=== PATIENT | male | born 2000 | race Caucasian/White ===

== ENCOUNTER 2019-02-10 22:04 | Inpatient (IN) | payer BC ==
[~2019-02-10] VITALS: Ht 188 cm; Wt 87.0 kg
[2019-02-10 22:36] LABS: BASO % 0.2 % (0.0-2.0); GRAN # 16.7 (1.4-6.5); GRAN % 88.1 % (42.2-75.2); LYMPH % 5.1 % (20.0-51.0); MEAN CELL VOLUME 90 fl (80.0-95.0); MEAN CORPUSCULAR HGB CONC 34 g/dl (33.0-37.0); MEAN PLATELET VOLUME 10.8 fl (7.4-10.4); MONO # 1.1 (0.1-0.6); MONO % 5.9 % (1.7-9.3); PLATELET COUNT 449 K/mm3 (130-400); RED BLOOD COUNT 5.83 M/mm3 (4.20-5.60); REDCELL DISTRIBUTION WIDTH-CV 12.5 % (11.5-14.5)
[2019-02-10 22:38] LABS: HEMATOCRIT 52.7 % (36.0-47.0); HEMOGLOBIN 18.1 g/dl (12.5-16.1); MEAN CORPUSCULAR HEMOGLOBIN 31 pg (26.0-32.0)
[2019-02-10 22:45] LABS: ACETONE,SERUM SMALL
[2019-02-10 22:47] LABS: ALANINE AMINOTRANSFERASE 43 U/L (21-72); ALBUMIN 5.2 gm/dL (3.5-5.0); ALKALINE PHOSPHATASE 197 U/L (50-136); ANION GAP 22 mmol/L (7-16); AST,SGOT 57 U/L (15-37); BILIRUBIN,TOTAL 0.7 mg/dL (0.0-1.0); BLOOD UREA NITROGEN 37 mg/dL (9-20); CALCIUM 11.3 mg/dL (8.4-10.2); CARBON DIOXIDE 20 mmol/L (22-30); CHLORIDE 102 mmol/L (98-107); GLUCOSE 53 mg/dL (74-106); POTASSIUM 3.7 mmol/L (3.4-5.0); SODIUM 143 mmol/L (137-145); TOTAL PROTEIN 9.7 gm/dL (6.4-8.2)
[2019-02-11] VITALS (885 sets, daily range): BP systolic 101–132; BP diastolic 52–82; PULSE 78–110; TEMP 98.4–98.6; O2SAT 90–100
[2019-02-11 01:09] LABS: CALCIUM 10.8 mg/dL (8.4-10.2); CREATININE, serum 2.17 (0.66-1.25); POTASSIUM 4.3 mmol/L (3.4-5.0)
[2019-02-11 01:43] LABS: COLLECTION METHOD CLEAN CATCH
[2019-02-11 01:50] LABS: HYALINE CAST >12 /lpf; MUCOUS Present /lpf; PH 5 (5-8); SQUAMOUS EPITHELIAL 0-2 /hpf; URINE APPEARANCE Hazy; URINE BACTERIA Rare /hpf; URINE BILIRUBIN Negative (NEGATIVE); URINE BLOOD Negative (NEGATIVE); URINE COLOR Yellow; URINE GLUCOSE 3+ (NEGATIVE); URINE KETONE 1+ (NEGATIVE); URINE LEUKOCYTE ESTERASE Negative (NEGATIVE); URINE NITRATE Negative (NEGATIVE); URINE PROTEIN(semi-quant) 1+ (NEGATIVE); URINE RBC 0-2 /hpf; URINE UROBILINOGEN Negative (NEGATIVE)
--- NOTE | 2019-02-11 02:50 | NUR ---
Arrived to the unit via stretcher. Able to self transfer to icu bed. Attached to all monitors. Patient alert and oriented with no complaints at this time.
[2019-02-11 03:16] LABS: MAGNESIUM 2.1 mg/dL (1.6-2.3); PHOSPHOROUS 0.9 mg/dL (2.5-4.5)
[2019-02-11 03:44] LABS: CALCIUM 9.8 mg/dL (8.4-10.2); CREATININE, serum 1.71 (0.66-1.25); POTASSIUM 4.2 mmol/L (3.4-5.0)
[2019-02-11] MEDS ORDERED: TRESIBA100 UNIT/1 SQ (04:09)
[2019-02-11 05:58] LABS: BASO % 0.2 % (0.0-2.0); GRAN # 11.3 (1.4-6.5); GRAN % 84.3 % (42.2-75.2); HEMATOCRIT 43.9 % (36.0-47.0); LYMPH # 1.4 (1.2-3.4); LYMPH % 10.1 % (20.0-51.0); MEAN CELL VOLUME 93 fl (80.0-95.0); MEAN CORPUSCULAR HGB CONC 33 g/dl (33.0-37.0); MEAN PLATELET VOLUME 10.9 fl (7.4-10.4); MONO # 0.7 (0.1-0.6); MONO % 5.1 % (1.7-9.3); RED BLOOD COUNT 4.72 M/mm3 (4.20-5.60); REDCELL DISTRIBUTION WIDTH-CV 12.7 % (11.5-14.5)
[2019-02-11 06:07] LABS: HEMOGLOBIN 14.5 g/dl (12.5-16.1); MEAN CORPUSCULAR HEMOGLOBIN 31 pg (26.0-32.0); PLATELET COUNT 313 K/mm3 (130-400)
[2019-02-11 06:13] LABS: CREATININE, serum 1.54 (0.66-1.25); POTASSIUM 4.2 mmol/L (3.4-5.0)
--- NOTE | 2019-02-11 06:23 | NUR ---
Instructed per hospitalist to place d5 ns on hold once blood glucose greather than 150. Last check was 198. D5NS placed on hold. WIll continue to hourly accu checks at this time.
[2019-02-11] MEDS ORDERED: NOVOLOG 100U100 U/M1 (07:01)
[2019-02-11 07:23] LABS: CALCIUM 8.7 mg/dL (8.4-10.2); CREATININE, serum 1.38 (0.66-1.25); POTASSIUM 4.4 mmol/L (3.4-5.0)
--- NOTE | 2019-02-11 07:40 | NUR ---
Bedside report given to STEFANO Nagel. Patient care transfered.
--- NOTE | 2019-02-11 07:52 | NUR ---
Reported latest blood glucose to hospitalist. Instructed to give 46U of levemir and high dose sliding scale.
--- NOTE | 2019-02-11 08:00 | NUR ---
Shift assessment complete at this time. Plan of care reviewed at bedside with patient. Additional time taken to address any other needs or concerns. Vitals stable at this time. Pt denies pain, nausea, or any additional discomforts at this time. Bed in low position, call light within reach. Will continue to monitor.
[2019-02-11 10:11] LABS: CREATININE, serum 1.18 (0.66-1.25); POTASSIUM 5.3 mmol/L (3.4-5.0)
--- NOTE | 2019-02-11 12:00 | NUR ---
Pt resting comfortably in bed. Denies pain or any other discomfort. Vitals stable at this time. Bed in low position, call light within reach, will continue to monitor.
[2019-02-11 14:28] LABS: CALCIUM 8.9 mg/dL (8.4-10.2); CREATININE, serum 1.22 (0.66-1.25); POTASSIUM 3.7 mmol/L (3.4-5.0)
--- NOTE | 2019-02-11 16:00 | NUR ---
Pt resting comfortably in bed. Denies pain or any additional discomforts. Vitals stable at this time. Bed in low position, call light within reach. Will continue to monitor.
--- NOTE | 2019-02-11 17:04 | NUR ---
Pt's blood glucose noted to by 43 on accucheck. 4 oz of juice administered, will recheck in 15 minutes.
--- NOTE | 2019-02-11 17:18 | NUR ---
Pt blood glucose now 53, administering 8 oz of skim milk and will recheck in 15 minutes.
--- NOTE | 2019-02-11 19:22 | NUR ---
Bedside report given to STEFANO Penny.
[2019-02-12] VITALS (660 sets, daily range): BP systolic 109–126; BP diastolic 65–82; PULSE 66–93; TEMP 98–98.1; O2SAT 96–100
--- NOTE | 2019-02-12 | NUR ---
Patient blood glucose currently 60, asymptomatic. 1 cup of OJ and 2 packs of peanut butter and crackers given to patient, will continue to monitor.
[2019-02-12 05:13] LABS: BASO % 0.4 % (0.0-2.0); EOS # 0.2 (0.0-0.7); EOS % 2.1 % (0-4.0); GRAN # 4.6 (1.4-6.5); GRAN % 62.8 % (42.2-75.2); HEMATOCRIT 39.6 % (36.0-47.0); HEMOGLOBIN 12.9 g/dl (12.5-16.1); LYMPH # 2.1 (1.2-3.4); LYMPH % 28.9 % (20.0-51.0); MEAN CELL VOLUME 95 fl (80.0-95.0); MEAN CORPUSCULAR HEMOGLOBIN 31 pg (26.0-32.0); MEAN CORPUSCULAR HGB CONC 33 g/dl (33.0-37.0); MEAN PLATELET VOLUME 10.9 fl (7.4-10.4); MONO # 0.4 (0.1-0.6); MONO % 5.4 % (1.7-9.3); PLATELET COUNT 225 K/mm3 (130-400); RED BLOOD COUNT 4.18 M/mm3 (4.20-5.60); REDCELL DISTRIBUTION WIDTH-CV 12.9 % (11.5-14.5)
[2019-02-12 05:24] LABS: BILIRUBIN,TOTAL 0.2 mg/dL (0.0-1.0); CALCIUM 8.1 mg/dL (8.4-10.2); CREATININE, serum 0.69 (0.66-1.25); POTASSIUM 4.3 mmol/L (3.4-5.0); TOTAL PROTEIN 5.6 gm/dL (6.4-8.2)
--- NOTE | 2019-02-12 11:48 | NUR ---
PT DISCHRAGED TO HOME, MOTHER DRIVING PATIENT. FOLLOW UP APPOINTMENT MADE WITH . IV REMOVED, DISCHARGE PACKET AND EDUCATION REVIEWED WITH PATIENT AND MOTHER. NO QUESTIONS OR CONCERNS.
--- NOTE | 2019-02-13 09:02 | NUR ---
(02/12) [employer] student met with the patient to discuss a discharge plan. The patient lives in [place] with his mom, Donna. The patient denies use of DME and reports independence with ADLs. The patient does not have a PCP, a list of [facility] physicians was provided to the patient. [facility]. The patient plan to return home upon discharge with Donna providing transportation. There are no additional needs at this time.
== END 2019-02-12 11:50 | disposition home or self-care (01) | DRG 639 ==
LOC: COL.ER 22:04 → ICU 02-11 01:38
PROVIDERS: Nurse Practitioner; Nurse Practitioner Family; Student in an Organized Health Care Education/Training Program; ADMIT Hospitalist
DX: E10.649 Type 1 diabetes mellitus with hypoglycemia without coma (principal); N17.9 Acute kidney failure, unspecified; D72.829 Elevated white blood cell count, unspecified; R79.89 Other specified abnormal findings of blood chemistry; Z79.4 Long term (current) use of insulin; Z91.14 Patient's other noncompliance with medication regimen
CPT/HCPCS: 99223-AI; 99239; J1644; J1815; J2405; J7030; J7042